=== PATIENT | female | born 1965 | race Caucasian/White ===

== ENCOUNTER 2017-01-21 23:03 | Inpatient (IN) | payer BC ==
[~2017-01-21] VITALS: Ht 160 cm; Wt 54.5 kg
[2017-01-21] MEDS ORDERED: SODIUM CHLORIDE 0.9% 1L BAG IV* STA (23:28)
[2017-01-22 00:02] LABS: ADD SCAN DIFF NO
[2017-01-22 00:04] LABS: ABNORMAL IP MESSAGE 1; BASOPHILS % 0.5 % (0.0-2.0); EOSINOPHILS % 0.3 % (0.0-7.0); HEMATOCRIT 30.2 % (37.0-47.0); LYMPHOCYTES # 0.9 10^3/ul (0.8-2.9); LYMPHOCYTES % 23.1 % (15.0-51.0); MEAN CORPUSCULAR HEMOGLOBIN 31.8 pg (29.0-33.0); MEAN CORPUSCULAR HGB CONC 36.4 g/dl (32.0-37.0); MEAN CORPUSCULAR VOLUME 87.3 fl (82.0-101.0); MONOCYTE # 0.4 10^3/ul (0.3-0.9); MONOCYTES % 10.3 % (0.0-11.0); NEUTROPHIL # 2.5 10^3/ul (1.6-7.5); NEUTROPHILS % 65.3 % (39.0-77.0); RED BLOOD COUNT 3.46 10^6/ul (4.20-5.40); RED CELL DISTRIBUTION WIDTH 13.4 % (11.5-14.5); WHITE BLOOD COUNT 3.9 10^3/ul (4.8-10.8)
--- NOTE | 2017-01-22 00:05 | RADRPT ---
PROCEDURE: XR Chest. CLINICAL INDICATION: Possible sepsis. TECHNIQUE: Portable AP upright view of the chest was obtained. COMPARISON: None. FINDINGS: The cardiomediastinal silhouette is within normal limits. The lungs are clear. There is no evidenc e for pleural effusion, pneumothorax or pulmonary vascular congestion. The osseous structures are i ntact with no evidence for acute abnormality. A right-sided approach venous access device is present the distal tip projecting in the region of the right atrium. Left axillary clips are identified wit h absence of the left breast shadow likely related to prior mastectomy. RPTAT:HJJR IMPRESSION: 1.No evidence of pneumonia or acute intrathoracic pathology. 2. Venous access device in satisfactory position. 3. Left mastectomy and axillary lymphadenectomy changes. Physician Mara Date Time Electronically viewed and signed by Physician Mara on 01/22/2017 00:05 JR/
[2017-01-22 00:15] LABS: INR 1.43; PROTIME 17.5 Sec (12.2-14.2); PT RATIO 1.4
[2017-01-22 00:23] LABS: ALBUMIN 2.9 g/dl (3.3-4.9); ALBUMIN/GLOBULIN RATIO 0.7; BILIRUBIN,INDIRECT 1.3 mg/dl (0-1.1); BILIRUBIN,TOTAL 1.3 mg/dl (0.2-1.3); CALCIUM 7.9 mg/dl (8.4-10.2); CREATININE 0.91 mg/dl (0.44-1.00); POTASSIUM 4.1 mmol/L (3.5-5.1)
[2017-01-22 00:34] LABS: TROPONIN-I 0.019 ng/ml (0.00-0.12)
[2017-01-22 00:36] LABS: PLATELET COUNT 41 10^3/UL (140-415)
[2017-01-22 01:25] LABS: PARTIAL THROMBOPLASTIN TIME 112.8 Sec (25.0-35.0)
--- NOTE | 2017-01-22 02:07 | ERA ---
ER Documentation Chief Complaint Date/Time DATE: 01/22/17 TIME: 02:05 Chief Complaint ALOC,decreased appetite,hx stage 4 left breast CA HPI This a 42-year-old female brought in by family with altered level of consciousness being more lethargic with a decreased appetite. Patient has a history of stage IV left breast CA. No fevers no chills. No nausea no vomiting. No focal neurological complaints. No other current issues. This issue has been going on for the past 48 hours per family at the bedside ROS All systems reviewed and are negative except as per history of present illness. Allergies Allergies: Coded Allergies: No Known Allergy (Unverified , 01/21/17) PMhx/Soc History of Surgery: Yes (TUBAL LIGATION, LEFT MASTECTOMY) Hx Alcohol Use: No Hx Substance Use: No Hx Tobacco Use: No Smoking Status: Never smoker Physical Exam Vitals Vital Signs Date Time Temp Pulse Resp B/P Pulse Ox O2 Delivery O2 Flow Rate FiO2 01/21/17 23:55 Nasal Cannula 3 01/21/17 23:08 99.5 114 18 126/60 98 Physical Exam Const: [] Head: Atraumatic Eyes: Normal Conjunctiva ENT: Normal External Ears, Nose and Mouth. Neck: Full range of motion..~ No meningismus. Resp: Clear to auscultation bilaterally Cardio: Regular rate and rhythm, no murmurs Abd: Soft, non tender, non distended. Normal bowel sounds Skin: No petechiae or rashes Back: No midline or flank tenderness Ext: No cyanosis, or edema Neur: Awake and alert Psych: Normal Mood and Affect Result Diagram: 01/21/17 2345 01/21/17 2345 Results 24 hrs Laboratory Tests Test 01/21/17 23:45 01/22/17 00:32 White Blood Count 3.910^3/ul Red Blood Count 3.4610^6/ul Hemoglobin 11.0g/dl Hematocrit 30.2% Mean Corpuscular Volume 87.3fl Mean Corpuscular Hemoglobin 31.8pg Mean Corpuscular Hemoglobin Concent 36.4g/dl Red Cell Distribution Width 13.4% Platelet Count 4110^3/UL Mean Platelet Volume 11.0fl Neutrophils % 65.3% Lymphocytes % 23.1% Monocytes % 10.3% Eosinophils % 0.3% Basophils % 0.5% Nucleated Red Blood Cells % 0.0/100WBC Neutrophils # 2.510^3/ul Lymphocytes # 0.910^3/ul Monocytes # 0.410^3/ul Eosinophils # 0.010^3/ul Basophils # 0.010^3/ul Nucleated Red Blood Cells # 0.010^3/ul Prothrombin Time 17.5Sec Prothrombin Time Ratio 1.4 INR International Normalized Ratio 1.43 Activated Partial Thromboplast Time 112.8Sec Sodium Level 125mmol/L Potassium Level 4.1mmol/L Chloride Level 105mmol/L Carbon Dioxide Level 15mmol/L Anion Gap 9 Blood Urea Nitrogen 11mg/dl Creatinine 0.91mg/dl Glucose Level 257mg/dl Lactic Acid Level 1.9mmol/L 1.9mmol/L Calcium Level 7.9mg/dl Total Bilirubin 1.3mg/dl Direct Bilirubin 0.00mg/dl Indirect Bilirubin 1.3mg/dl Aspartate Amino Transf (AST/SGOT) 88IU/L Alanine Aminotransferase (ALT/SGPT) 40IU/L Alkaline Phosphatase 123IU/L Troponin I 0.019ng/ml Total Protein 7.0g/dl Albumin 2.9g/dl Globulin 4.10g/dl Albumin/Globulin Ratio 0.70 Current Medications Medications (Trade) Dose Ordered Sig/Harpreet Route PRN Reason Start Time Stop Time Status Last Admin Dose Admin Sodium Chloride (NS) 1,690 ml BOLUS OVER 2 HOURS STAT IV* 01/21/17 23:28 01/21/17 23:30 DC 01/22/17 00:15 Procedures/MDM EKG: Rate/Rhythm: Normal Sinus Rhythm QRS, ST, T-waves: No changes consistent w/ acute ischemia Impression: No evidence of ischemia or arrhythmia Chest X-ray 1V Interpreted by me: Soft Tissue: No acute abnormalities Bones: No acute abnormalities Mediastinum/Cardiac Silhouette/Lungs: No acute abnormalities Medical decision making: Correlation with acute encephalopathy. Patient will be admitted to hospitalist for further evaluation and management noted to have hyponatremia. Given fluid bolus here in the ER. Departure Diagnosis: Primary Impression: Altered mental status Qualified Code: R41.82 - Altered mental status, unspecified altered mental status type Additional Impression: Hyponatremia Condition: Serious CLOTILDE BLACK Jan 22, 2017 02:06
--- NOTE | 2017-01-22 02:23 | RADRPT ---
PROCEDURE: CT Brain without contrast. CLINICAL INDICATION: Dizziness. TECHNIQUE: Serial axial computed tomographic images of the brain was performed on a CT scanner fro m the skull base through the vertex without contrast. Sagittal and coronal reconstruction images wer e produced. Exam CTDlvol = 45 mGy and DLP = 701 a mGy-cm. One of the following 3 dose reduction te chniques were used: Automated exposure control; adjustment of the mA and/or kV according to patient size; or use of iterative reconstruction technique. COMPARISON: None available FINDINGS: The ventricles and sulci are normal in size and configuration. There is no midline shift. There ar e no focal parenchymal abnormalities. There is no acute stroke. No acute intracranial hemorrhage o r abnormal extra-axial fluid collection. No fracture identified. There is left maxillary sinus and bilateral ethmoid air cell mucosal thickening. IMPRESSION: 1. No acute intracranial abnormality. 2. Mild paranasal sinus disease. RPTAT: HMVK .Amaury Hobson MD, Date Time Electronically viewed and signed by .Amaury Hobson MD, on 01/22/2017 02:23 .K/
[2017-01-22 05:18] VITALS: TEMP 98.7
[2017-01-22] MEDS ORDERED: NACL 0.9% 3 ML SYG IV SCH (07:00)
[2017-01-22] MEDS ORDERED: ONDANSETRON 4 MG INJ IV PRN (07:00)
[2017-01-22] MEDS ORDERED: morphine 2 MG INJ IV PRN (07:00)
[2017-01-22] MEDS ORDERED: ACETAMINOPHEN 325 MG TAB PO PRN (07:00)
[2017-01-22] MEDS ORDERED: EVER10TA PO (07:37)
[2017-01-22] MEDS ORDERED: FURO20TA3 PO (07:37)
[2017-01-22] MEDS ORDERED: ASPI81TA3 PO (07:38)
[2017-01-22] MEDS: SOD CHLORIDE 0.9% 1,000 ML IV SCH ×2 (07:41→21:48)
[2017-01-22] MEDS ORDERED: SPIR50TA PO (07:49)
[2017-01-22] MEDS ORDERED: MEG40/1 PO (07:49)
[2017-01-22 10:14] LABS: ADD SCAN DIFF NO
[2017-01-22 10:21] LABS: ABNORMAL IP MESSAGE 1; HEMATOCRIT 32.1 % (37.0-47.0); HEMOGLOBIN 11.2 g/dl (12.0-16.0); MEAN CORPUSCULAR HEMOGLOBIN 31.3 pg (29.0-33.0); MEAN CORPUSCULAR HGB CONC 34.9 g/dl (32.0-37.0); MEAN CORPUSCULAR VOLUME 89.7 fl (82.0-101.0); PLATELET COUNT 37 10^3/UL (140-415); RED BLOOD COUNT 3.58 10^6/ul (4.20-5.40); RED CELL DISTRIBUTION WIDTH 13.5 % (11.5-14.5); WHITE BLOOD COUNT 3.4 10^3/ul (4.8-10.8)
[2017-01-22 10:41] LABS: ALBUMIN 2.6 g/dl (3.3-4.9); ALBUMIN/GLOBULIN RATIO 0.7; BILIRUBIN,INDIRECT 1.1 mg/dl (0-1.1); BILIRUBIN,TOTAL 1.1 mg/dl (0.2-1.3); CALCIUM 7.5 mg/dl (8.4-10.2); CREATININE 0.74 mg/dl (0.44-1.00); MAGNESIUM 1.8 mg/dl (1.7-2.5); PHOSPHORUS 2.6 mg/dl (2.5-4.9); POTASSIUM 4.1 mmol/L (3.5-5.1); TOTAL PROTEIN 6.3 g/dl (6.1-8.1)
--- NOTE | 2017-01-22 11:08 | HP ---
Date/Time of Note Date/Time of Note DATE: 01/22/17 TIME: 10:53 Assessment/Plan Assessment/Plan Assessment/Plan 1. Altered Mental status, most likely metabolic Encephalopathy - Head CT neg - will correct Na and will check ammonia level - will f/u culture results 2. Stage IV Breast ca with mets to stomach: s/p mastectomy, axillary lymph node dissection and on chemo - cont outpt mgmt 3. Hx of Liver Cirrhosis - will check ammonia level 4. Hyponatremia - cont NS IVF for now 5. Pancyopenia with severe thrombocytopenia - malignancy/chemo related - pt is not neutropenic - will transfuse PLT and hgb as needed 6. SIRS with no clear source of infection - f/u culture results HPI/ROS Admit Date/Time Admit Date/Time Hx of Present Illness Patient is a 51 yo female with hx of Metastatic breast cancer to ?stomach, cirrhosis who presented to ER for altered mentation. Pt is confused and unable to give adequate hx. Pt also has been weaker with decreased appetite. In ER, head CT was neg. Labs showed a Na od 125, HCO3 15, Glu 257, WBC 3.9, Hgb 11, PLT 41 and alk phos 188. inial vitals showed temp of 99.5 with HR of 114. . PMH/Family/Social Social History Smoking Status: Never smoker Exam/Review of Systems Vital Signs Vitals Vital Signs Date Time Temp Pulse Resp B/P Pulse Ox O2 Delivery O2 Flow Rate FiO2 01/22/17 09:30 74 19 102/42 97 Room Air 01/22/17 07:52 2.0 01/22/17 05:18 98.7 Labs Result Diagram: 01/22/17 1002 01/22/17 1002 Medications Medications Current Medications Sodium Chloride (NS) 1,000 ml @ 75 mls/hr [id number] IV Last administered on 01/22t 07:41; Admin Dose 75 MLS/HR; Start 01/22/17 at 06:41; Stop 01/22/17 at 23: 00 Ondansetron HCl (Zofran Inj) 4 mg Q6H PRN IV NAUSEA AND/OR VOMITING; Start 08/30 at 07:00 Acetaminophen (Tylenol Tab) 650 mg Q6H PRN PO PAIN LEVEL 1-3 OR FEVER; Start at 07:00 Morphine Sulfate (morphine) 2 mg Q4H PRN IV SEVERE PAIN LEVEL 7-10; Start 01/22 at 07:00 CLOTILDE NUNEZ MD Jan 22, 2017 11:08
[2017-01-22 11:28] LABS: T3 UPTAKE 40.5 % (23.5-40.5)
[2017-01-22 13:03] LABS: EOSINOPHILS # 0.1 10^3/ul (0.0-0.5); LYMPHOCYTES # 0.5 10^3/ul (0.8-2.9); MONOCYTE # 0.4 10^3/ul (0.3-0.9); NEUTROPHIL # 1.5 10^3/ul (1.6-7.5)
[2017-01-22 13:04] LABS: PLATELET ESTIMATE PLT APPEAR DECREASED
[2017-01-22] MEDS ORDERED: VANCOMYCIN IV PER PHARMACY XX SCH (18:00)
[2017-01-22 18:24] VITALS: BP 116/58; RESP 20
[2017-01-22] MEDS ORDERED: VANCOMYCIN 1 GM in NS 250 ML IVPB SCH (18:30)
[2017-01-22 19:56] VITALS: Ht 160 cm; Wt 54.5 kg
[2017-01-22 20:00] VITALS: BP 123/59; RESP 19
[2017-01-22 21:14] VITALS: PULSE 94
[2017-01-22] MEDS ORDERED: METR45GE3 TOP (21:46)
[2017-01-22] MEDS: metroNIDAZOLE 0.75% 45 GM GEL TOP SCH (22:30)
[2017-01-23] VITALS (12 sets, daily range): BP systolic 100–122; BP diastolic 50–66; PULSE 92–105; RESP 17–21
[2017-01-23 06:17] LABS: ADD SCAN DIFF NO
[2017-01-23 06:19] LABS: ABNORMAL IP MESSAGE 1; BASOPHILS % 0.3 % (0.0-2.0); EOSINOPHILS # 0.1 10^3/ul (0.0-0.5); EOSINOPHILS % 2.7 % (0.0-7.0); HEMATOCRIT 26.1 % (37.0-47.0); LYMPHOCYTES # 0.7 10^3/ul (0.8-2.9); LYMPHOCYTES % 21.1 % (15.0-51.0); MEAN CORPUSCULAR HEMOGLOBIN 30.8 pg (29.0-33.0); MEAN CORPUSCULAR HGB CONC 34.5 g/dl (32.0-37.0); MEAN CORPUSCULAR VOLUME 89.4 fl (82.0-101.0); MEAN PLATELET VOLUME 11.7 fl (7.4-10.4); MONOCYTE # 0.3 10^3/ul (0.3-0.9); MONOCYTES % 8.5 % (0.0-11.0); NEUTROPHIL # 2.2 10^3/ul (1.6-7.5); NEUTROPHILS % 67.4 % (39.0-77.0); RED BLOOD COUNT 2.92 10^6/ul (4.20-5.40); RED CELL DISTRIBUTION WIDTH 13.8 % (11.5-14.5); WHITE BLOOD COUNT 3.3 10^3/ul (4.8-10.8)
[2017-01-23] MEDS ORDERED: VANCOMYCIN 750 MG in SOD CHLORIDE 0.9% 150 ML IVPB SCH (06:30)
[2017-01-23 06:31] LABS: PLATELET COUNT 29 10^3/UL (140-415)
[2017-01-23 06:43] LABS: CALCIUM 7.3 mg/dl (8.4-10.2); CREATININE 0.69 mg/dl (0.44-1.00); MAGNESIUM 1.9 mg/dl (1.7-2.5); PHOSPHORUS 2.3 mg/dl (2.5-4.9); POTASSIUM 3.6 mmol/L (3.5-5.1)
[2017-01-23] MEDS ORDERED: CEPASTAT LOZENGE MT PRN (11:00)
[2017-01-23] MEDS: SOD CHLORIDE 0.9% 1,000 ML IV SCH (11:30)
[2017-01-23] MEDS ORDERED: SODIUM PHOSPHATE 20 MEQ in SOD CHLORIDE 0.9% 250 ML IVPB ONE (13:00)
[2017-01-23] MEDS ORDERED: EXEMESTANE 25 MG TAB PO SCH (14:00)
[2017-01-23] MEDS: SODIUM CHLORIDE 1 GM TAB PO SCH ×2 (14:46→20:14)
[2017-01-23] MEDS: metroNIDAZOLE 0.75% 45 GM GEL TOP SCH ×2 (14:46→20:15)
[2017-01-23] MEDS: VANCOMYCIN 750 MG in SOD CHLORIDE 0.9% 150 ML IVPB SCH (18:30)
[2017-01-23] MEDS: GUAIFENESIN 20 MG/ML 5ML CUP PO PRN (20:14)
[2017-01-23] MEDS: MEGESTROL (40 MG/ML) 10ML CUP PO SCH (20:14)
[2017-01-23] MEDS: EXEMESTANE 25 MG TAB PO SCH (20:19)
[2017-01-23] MEDS ORDERED: metroNIDAZOLE 0.75% 45 GM GEL TOP SCH (21:00)
[2017-01-23] MEDS: AFINITOR 10 MG PO SCH (21:30)
[2017-01-24] VITALS (14 sets, daily range): BP systolic 107–121; BP diastolic 56–62; PULSE 90–150; RESP 17–22
[2017-01-24] MEDS: SOD CHLORIDE 0.9% 1,000 ML IV SCH ×2 (00:47→14:10)
[2017-01-24] MEDS: VANCOMYCIN 750 MG in SOD CHLORIDE 0.9% 150 ML IVPB SCH (05:45)
[2017-01-24 05:58] LABS: ADD SCAN DIFF NO
[2017-01-24] MEDS ORDERED: PANTOPRAZOLE (EC) 40 MG TAB PO SCH (06:00)
[2017-01-24 06:02] LABS: ABNORMAL IP MESSAGE 1; HEMATOCRIT 24.1 % (37.0-47.0); HEMOGLOBIN 8.3 g/dl (12.0-16.0); MEAN CORPUSCULAR HEMOGLOBIN 30.5 pg (29.0-33.0); MEAN CORPUSCULAR HGB CONC 34.4 g/dl (32.0-37.0); MEAN CORPUSCULAR VOLUME 88.6 fl (82.0-101.0); MEAN PLATELET VOLUME 10.2 fl (7.4-10.4); RED BLOOD COUNT 2.72 10^6/ul (4.20-5.40); RED CELL DISTRIBUTION WIDTH 13.3 % (11.5-14.5); WHITE BLOOD COUNT 2.2 10^3/ul (4.8-10.8)
[2017-01-24 06:10] LABS: PLATELET COUNT 25 10^3/UL (140-415)
[2017-01-24 06:18] LABS: CREATININE 0.56 mg/dl (0.44-1.00); MAGNESIUM 1.9 mg/dl (1.7-2.5); PHOSPHORUS 2.1 mg/dl (2.5-4.9)
[2017-01-24] MEDS: SODIUM CHLORIDE 1 GM TAB PO SCH ×3 (08:48→20:11)
[2017-01-24] MEDS: MEGESTROL (40 MG/ML) 10ML CUP PO SCH ×2 (08:48→20:10)
[2017-01-24] MEDS: metroNIDAZOLE 0.75% 45 GM GEL TOP SCH ×2 (08:48→20:11)
[2017-01-24] MEDS: EXEMESTANE 25 MG TAB PO SCH (08:51)
--- NOTE | 2017-01-24 08:56 | PN ---
DATE: 01/23/2017 SUBJECTIVE: The patient appears a bit more alert, still somewhat lethargic. Family is at the [facility]. No acute events overnight. Seen by speech therapy team earlier today. OBJECTIVE VITAL SIGNS: Stable. GENERAL: The patient is lying in bed, answering questions appropriately, slightly lethargic, but no acute distress. HEENT: Pupils equal, round, react to light. Extraocular muscles intact. NECK: Supple, no thyromegaly. LUNGS: Clear to auscultation bilaterally. CARDIOVASCULAR: S1, S2 heard. No rubs or gallops. ABDOMEN: Soft, nontender, nondistended. Normal bowel sounds. No rebound or guarding. MUSCULOSKELETAL: No lower extremity edema bilaterally. NEUROLOGIC: No focal deficits. LABORATORY DATA: WBC 3.3, hemoglobin 9.0, hematocrit 26.1, platelets 29. Sodium 129, ____ 112, CO2 14, BUN of 8, creatinine 0.69, glucose 229. Phosphorus is 2.3, calcium is 7.3. Head CT showed no acute intracranial abnormalities. Chest x-ray yesterday showed no evidence of any pneumonias or acu te intrathoracic pathology. ASSESSMENT AND PLAN: A 51-year-old female with history of stage IV breast cancer on chemotherapy, s tatus post mastectomy, who presents with altered mental status, possibly secondary to metabolic ence phalopathy and hyponatremia. 1. Altered mental status. Again, head CT was negative. She does have hyponatremia. She is gettin g chemotherapy for the last 2 years as well for stage IV breast cancer. Her sodium is on the low no rmal side now. She does have some low phosphorus, so we will give her sodium phosphate. Will consi elvis salt tablets. Continue IV fluids as well. Her hemoglobin was normal. Consider doing neuro ellen cks as well. 2. Stage IV breast cancer with metastasis to the stomach. She does see a Hem Onc doctor in [facility] [place] and gets chemotherapy every Saturday. At the clinic she is also on home medicine for chemotherapy , receptor bessy medicine, Afinitor. We will continue that for now, continue to monitor, continu e Megace as well. 3. Thrombocytopenia, most likely secondary to the patient's Afinitor use. She still takes metronid azole gel as well, so we will monitor her platelets for now. No signs of any bleeding presently. I f there are any abnormalities, will consider hematology/oncology consult. If there is any bleeding or if it gets less than the 15-10,000 range, consider platelet transfusion at that time. 4. Gastrointestinal prophylaxis, ____. 5. Deep venous thrombosis prophylaxis, we will put her on SCDs. No anticoagulants given her low pl atelets. 6. Cough ____ negative for any upper respiratory infections. We will give her Guaifenesin and ____ p.r.n. We will also follow up consult as well. ____ Dictated By: RENETTA FRIAS/JAVON Conf#: [id number] DID#: [id number]
[2017-01-24] MEDS ORDERED: ASPIRIN 81 MG TAB PO SCH (09:00)
[2017-01-24] MEDS ORDERED: EVEROLIMUS 10 MG PO SCH (09:00)
[2017-01-24] MEDS ORDERED: AFINITOR 10 MG PO SCH (09:00)
[2017-01-24] MEDS ORDERED: SOD CHLORIDE 0.9% 250 ML IV* ONE (10:03)
[2017-01-24] MEDS: AFINITOR 10 MG PO SCH (10:04)
--- NOTE | 2017-01-24 10:08 | PDOCDIS ---
Discharge Instructions CONDITION Patient Condition: Stable HOME CARE INSTRUCTIONS: Special Diet: SOFT ACTIVITY: Activity Restrictions: Slowly Increase Activity FOLLOW UP/APPOINTMENTS Appointments Please take your medications as prescribed, and see your doctor in the clinic in 1-2 days. RENETTA RBOWN Jan 24, 2017 10:08
[2017-01-24] MEDS ORDERED: EXEM25TA PO (10:10)
[2017-01-24] MEDS ORDERED: BENZ1LOZ4 MT (10:10)
--- NOTE | 2017-01-24 10:54 | DS ---
DATE OF ADMISSION: 01/22/2017 DATE OF DISCHARGE: 01/24/2017 A 51-year-old female originally admitted on 01/22/2015 being discharged home on 01/24/2017. HOSPITAL COURSE: The patient came in with altered mental status thought to be likely secondary to m etabolic encephalopathy. She has a history of stage IV breast cancer with metastasis and is present ly on chemotherapy. She had a head CT performed that showed no acute intracranial abnormalities. S he had a chest x-ray that showed no evidence of any pneumonias or acute intrathoracic pathology. Sh e was also found with hyponatremia given normal saline IV fluids. She also had some low electrolyte s that were repeated including low potassium levels and low phosphorus levels. Over the course of h er hospital stay, she worked with physical therapy. She had less altered mental status. She became more alert after getting IV fluids. She was continued on her home chemotherapy medicines including aspirin, Lipitor and Aromasin. Again, patient became more alert. She was found to have low platele t levels, thought to be secondary to her home chemotherapy medicines that she is taking and she did not have any bleeding episodes; however, but she was given an order for 1 unit of platelet transfusi on as well since her platelets were down to 25 level. Again, no bleeding issues after she gets that and she gets more electrolyte repletion today she will be discharged home today with a front-wheel walker in improved condition. DISCHARGE MEDICATIONS: She will be sent with: 1. Cepastat lozenges q.1h. p.r.n. 2. Exemestane 25 mg daily. 3. Aspirin 81 mg daily. 4. Afinitor 10 mg daily. 5. Furosemide 20 mg daily. 6. Megace 400 mg b.i.d. 7. Metronidazole gel applied topically b.i.d. 8. Spironolactone 50 mg daily. She has an appointment tomorrow with her hematology/oncology doctor for continued chemotherapy likel y in 24 hours in [place] and she will follow up with him. FINAL DIAGNOSES: 1. Altered mental status secondary to metabolic encephalopathy. Head CT was negative, possibly sec ondary to her low electrolytes and hyponatremia. 2. Hyponatremia, resolving with fluids and salt tablets. 3. History of stage IV breast cancer with metastasis to the stomach and presently on chemotherapy a s an outpatient as well as home chemotherapy medicines as well and Megace. 4. Thrombocytopenia, likely secondary to the patient's home chemotherapy medication use, no signs o f any bleeding. 5. History of liver cirrhosis with normal ammonia levels. Time spent discharging patient 45 minutes. Dictated By: RENETTA FRIAS/JAVON Conf#: [id number] DID#: [id number]
[2017-01-24] MEDS ORDERED: POTASSIUM PHOSPHATE 40 MEQ in SOD CHLORIDE 0.9% 250 ML IVPB ONE (12:00)
[2017-01-24] MEDS: GUAIFENESIN 20 MG/ML 5ML CUP PO PRN (13:51)
[2017-01-24 13:53] LABS: LYMPHOCYTES # 0.8 10^3/ul (0.8-2.9); NEUTROPHIL # 1.2 10^3/ul (1.6-7.5); PLATELET ESTIMATE PLT APPEAR DECREASED
[2017-01-24] MEDS ORDERED: VANCOMYCIN 1 GM in NS 250 ML IVPB SCH (18:00)
[2017-01-24] MEDS ORDERED: METOPROLOL 25 MG TAB PO ONE (21:30)
== END 2017-01-24 23:00 | disposition home or self-care (01) | DRG 70 ==
LOC: E/R 23:03 → TEL 01-22 02:10
PROVIDERS: ADMIT Internal Medicine; ATTEND Internal Medicine
DX: G93.41 Metabolic encephalopathy (principal); D61.810 Antineoplastic chemotherapy induced pancytopenia; C78.89 Secondary malignant neoplasm of other digestive organs; R65.10 Systemic inflammatory response syndrome (SIRS) of non-infectious origin without acute organ dysfunction; D69.59 Other secondary thrombocytopenia; E87.1 Hypo-osmolality and hyponatremia; C50.919 Malignant neoplasm of unspecified site of unspecified female breast; Z79.899 Other long term (current) drug therapy; Z98.890 Other specified postprocedural states
CPT/HCPCS: 36415; 36430; 70450; 71010; 80048; 80053; 80202; 82140; 83605; 83735; 84100; 84436; 84479; 84484; 85025; 85610; 85730; 86644; 86850; 86900; 86901; 86945; 87040; 92610; 93005; 97162; J3370; J7030; J7040; J7050; P9035